=== PATIENT | female | born 1995 | race Caucasian/White ===

== ENCOUNTER 2024-03-24 01:09 | Emergency (ER) | payer BC ==
[~2024-03-24] VITALS: Ht 162.6 cm; Wt 49.0 kg
[2024-03-24 01:22] VITALS: BP 125/92; TEMP 98.1; O2SAT 98
[2024-03-24 06:47] LABS: ABG BASE EXCESS -0.7 mmol/L; ABG OXYGEN SATURATION 98.3 % (92.0-98.5); ABG PCO2 31.8 mmHg (35.0-45.0); ABG PH 7.462 (7.350-7.450); ABG PO2 121.7 mmHg (75.0-100.0); ABG TOTAL HEMOGLOBIN 14.4 G/dL (12.0-16.0); MetHb 0.2 % (0.0-1.5); O2Hb 98.1 % (94.0-97.0); PEEP,BG 5 cm H2O; SITE, ABG Right Brachial; VENT MODE, BG AC14 VT500 FIO2 60 PEEP+5; VT, ABG 500 mL
== END 2024-03-24 02:00 | disposition home or self-care (01) ==
LOC: ER 01:12
DX: Z77.098 Contact with and (suspected) exposure to other hazardous, chiefly nonmedicinal, chemicals (principal); R42 Dizziness and giddiness; J45.909 Unspecified asthma, uncomplicated
CPT/HCPCS: 36600; 82803-TC